=== PATIENT | female | born 1940 | race Caucasian/White ===

== ENCOUNTER → 2018-04-22 | Outpatient (CLI) | payer OTHER | LOC: M.RAD 14:25 | DX: Z12.31 Encounter for screening mammogram for malignant neoplasm of breast (principal) ==

== ENCOUNTER → 2019-04-25 | Outpatient (CLI) | payer OTHER | LOC: M.RAD 13:50 | DX: Z12.31 Encounter for screening mammogram for malignant neoplasm of breast (principal); Z13.820 Encounter for screening for osteoporosis; M85.89 Other specified disorders of bone density and structure, multiple sites; Z78.0 Asymptomatic menopausal state ==

== ENCOUNTER → 2020-04-30 | Outpatient (CLI) | payer MEDICARE | LOC: M.RAD 10:38 | PROVIDERS: ATTEND Family Medicine | DX: Z12.31 Encounter for screening mammogram for malignant neoplasm of breast (principal) ==

== ENCOUNTER → 2021-05-06 | Outpatient (CLI) | payer MEDICARE | LOC: M.RAD 10:30 | PROVIDERS: ATTEND Family Medicine | DX: Z12.31 Encounter for screening mammogram for malignant neoplasm of breast (principal) ==